=== PATIENT | male | born 1965 | race Asian ===

== ENCOUNTER 2017-05-01 19:25 | Emergency (ER) | payer OTHER ==
[2017-05-01 19:30] VITALS: BP 101/71; PULSE 81; TEMP 98; BMI 21.2
--- NOTE | 2017-05-01 19:55 | PDOC ---
History of Present Illness - General Chief Complaint: Pain, Acute Stated Complaint: SIDE AND LEG PAIN History Source: Patient Exam Limitations: No Limitations - History of Present Illness Initial Comments: 05/01/17 20:28 MY CHIEF COMPLAINT: LEFT SIDED LOWER BACK PAIN RADIATES DOWN LEFT LEG, WITH TINGLING LEFT LEG HISTORY OF PRESENT ILLNESS:PT. IS A 51 YEAR OLD MALE WITH H/O GERD HERE TODAY C/ O WORSENING LEFT SIDED LOWER BACK PAIN RADIATES DOWN LEFT POSTERIOR LEG TO HIS FOOT SINCE 04/07/17. PT. ALSO REPORTS TINGLING OF HIS LEFT LEG TO HIS FOOT. PT. DENIES ANY INCONTINENCY OR URINARY SYMPTOMS, NAUSEA OR VOMITING OR FEVER OR ANY CVA TENDERNESS OR SADDLE ANESTHESIA. PT. REPORTS LIFTING SOMETHING HEAVY AT WORK ON 04/07/17. PT. REPORTS TAKING IBUPROFEN YESTERDAY WITH SLIGHT RELIEF OF PAIN. PT. REPORTS HAVING PAIN IN HIS LOWER BACK IN THE PAST BUT NOT INTENSE THIS PAIN. PT. REPORTS PAIN IS A 7 OUT OF 10 PRESENTLY. HE DENIES ANY ABDOMINAL PAIN, NAUSEA, DIFFICULTY URINATING, FEVER OR HEMATURIA, 05/01/17 20:37 05/01/17 23:13 Timing/Duration: getting worse Severity: severe (left sided lower back pain radiating down left posterior leg to foot) Associated Symptoms: reports: denies symptoms, other (tingling left leg to left foot) Past History - Past Medical History Allergies/Adverse Reactions: Allergies Allergy/AdvReac Type Severity Reaction Status Date / Time Penicillins Allergy Intermediate Verified 05/01/17 19:28 sulfamethoxazole Allergy Intermediate Verified 05/01/17 19:28 [From Bactrim] trimethoprim [From Bactrim] Allergy Intermediate Verified 05/01/17 19:28 Home Medications: Ambulatory Orders Cyclobenzaprine HCl [Flexeril 10 mg] 10 mg PO Q8H PRN #21 tablet 05/01/17 Oxycodone HCl/Acetaminophen [Percocet 5-325 mg Tablet] 1 tab PO Q8H PRN #9 tablet MDD 3 05/01/17 GI Disorders: Yes (GERD) Suicide Attempt (Hx): No - Psycho/Social/Smoking Cessation Hx Anxiety: No Suicidal Ideation: No Smoking Status: No Smoking History: Never smoked Number of Cigarettes Smoked Daily: 0 Drug/Substance Use Hx: No Substance Use Type: None Review of Systems - Review of Systems Able to Perform ROS?: Yes Constitutional: No: Symptoms Reported HEENTM: No: Symptoms Reported Respiratory: No: Symptoms reported Cardiac (ROS): No: Symptoms Reported ABD/GI: No: Symptoms Reported : No: Symptoms Reported Musculoskeletal: Yes: Back Pain (left lumbar back pain radiates down left posterior leg to foot) Integumentary: No: Symptoms Reported Neurological: Yes: Tingling (left leg/left foot) *Physical Exam - Vital Signs Last Vital Signs Temp Pulse Resp BP Pulse Ox 98 F 81 18 101/71 100 05/01/17 19:28 05/01/17 19:28 05/01/17 19:28 05/01/17 19:28 05/01/17 19:28 - Physical Exam General Appearance: Yes: Appropriately Dressed Respiratory/Chest: positive: Lungs Clear, Normal Breath Sounds. negative: Chest Tender, Respiratory Distress Cardiovascular: positive: Regular Rhythm, Regular Rate Gastrointestinal/Abdominal: positive: Normal Bowel Sounds, Soft. negative: Tender, Organomegaly, Distended, Guarding, Rebound, Tenderness, Hepatomegaly, Spleenomegaly Musculoskeletal: positive: Normal Inspection, Decreased Range of Motion ( bending at waist ), Other (left sided lumbar back pain, no midline tenderness). negative: CVA Tenderness, CVA Tenderness (R), CVA Tenderness (L), Vertebral Tenderness Extremity: positive: Normal Capillary Refill, Normal Inspection, Normal Range of Motion Integumentary: positive: Normal Color Neurologic: positive: Alert, Normal Response, Motor Strength 5/5 (b/l legs ), Respond to painful stimul (legs b/l ), Responsive. negative: Numbness, Sensory Deficit (b/l legs ) Deep Tendon Reflexes: Knee (L): 4+, Knee (R): 4+ Medical Decision Making - Medical Decision Making 05/01/17 20:37 PT. IS A 51 YEAR OLD MALE WITH H/O GERD HERE TODAY C/O WORSENING LEFT SIDED LOWER BACK PAIN RADIATES DOWN LEFT POSTERIOR LEG TO HIS FOOT SINCE 04/07/17. PT. ALSO REPORTS TINGLING OF HIS LEFT LEG TO HIS FOOT. PT. DENIES ANY INCONTINENCY OR URINARY SYMPTOMS, NAUSEA OR VOMITING OR FEVER OR ANY CVA TENDERNESS OR SADDLE ANESTHESIA. PT. REPORTS LIFTING SOMETHING HEAVY AT WORK ON 04/07/17. PT. REPORTS TAKING IBUPROFEN YESTERDAY WITH SLIGHT RELIEF OF PAIN. PT. REPORTS HAVING PAIN IN HIS LOWER BACK IN THE PAST BUT NOT INTENSE THIS PAIN. PT. REPORTS PAIN IS A 7 OUT OF 10 PRESENTLY. PT. IS WORSE WITH CERTAIN MOVEMENTS. HE DENIES ANY ABDOMINAL PAIN, NAUSEA, DIFFICULTY URINATING, FEVER OR HEMATURIA. PT. REPORTS THAT HE HAD A URINE TEST 2 WEEKS AGO AT HIS PCP THAT WAS NEGATIVE. r/o robbin abnormality lumbar sacral spine LEFT SIDED LUMBAR RADICULOPATHY HEMATURIA R/O RENAL CALCULI 05/01/17 20:52 05/01/17 21:29 PLAN: urinalysis xray lumbar sacral spine no robbin abnormality noted, straightening of normal lordotic curve TORADOL 60 mg IM now flexeril 10 mg every 8 hrs prn muscle spasm x 7 days follow up with orthopedist as soon as possible ULTRASOUND RENAL no calculi noted percocet 5mg/325mg po every 8 hrs as needed for severe pain # 9 tabs 05/01/17 21:35 05/01/17 21:41 Laboratory Tests 05/01/17 19:55 Urine Color Ltyellow Urine Appearance Clear Urine pH 5.0 Ur Specific [place] Pending Urine Protein Negative Urine Glucose (UA) Negative Urine Ketones Negative Urine Blood 1+ H Urine Nitrite Negative Urine Bilirubin Negative Urine Urobilinogen Negative Ur Leukocyte Esterase Negative 05/01/17 23:14 *DC/Admit/Observation/Transfer Diagnosis at time of Disposition: Lumbar pain with radiation down left leg Hematuria Qualifiers: Hematuria type: unspecified type Qualified Code(s): R31.9 - Hematuria, unspecified - Discharge Dispostion Disposition: HOME Condition at time of disposition: Stable - Prescriptions Prescriptions: Cyclobenzaprine HCl [Flexeril 10 mg] 10 mg PO Q8H PRN #21 tablet PRN Reason: Muscle Spasms Oxycodone HCl/Acetaminophen [Percocet 5-325 mg Tablet] 1 tab PO Q8H PRN #9 tablet MDD 3 PRN Reason: Severe Pain - Referrals Referrals: Durga Johnson MD [Primary Care Provider] - Trip Rodriguez MD [Staff Physician] - - Patient Instructions Additional Instructions: AVOID ANY LIFTING OR STRENUOUS ACTIVITIES FOLLOW UP WITH ORTHOPEDIST WITHIN THE NEXT 2 DAYS FOR FURTHER EVALUATION RETURN TO EMERGENCY ROOM FOR WORSENING PAIN OR NUMBNESS OF LEGS OR PRIVATE AREA OR ANY NEW SYMPTOMS DEVELOP FOLLOW UP WITH YOUR PRIMARY CARE PROVIDER FOR REPEAT URINE TESING PATIENT VOICED UNDERSTANDING OF DISCHARGE INSTRUCTIONS AND ALL QUESTIONS WERE ANSWERED
[2017-05-01] MEDS ORDERED: KETOROLAC TROMETHAMINE 60 MG/2 ML VIAL IM ONE (20:20)
[2017-05-01 20:39] LABS: URINE APPEARANCE CLEAR; URINE BILIRUBIN NEGATIVE (NEGATIVE); URINE BLOOD 1+ (NEGATIVE); URINE COLOR LTYELLOW; URINE GLUCOSE (UA) NEGATIVE (NEGATIVE); URINE KETONE NEGATIVE (NEGATIVE); URINE LEUK ESTERASE NEGATIVE (NEGATIVE); URINE NITRITE NEGATIVE (NEGATIVE); URINE PROTEIN NEGATIVE (NEGATIVE); URINE UROBILINOGEN NEGATIVE mg/dL (0.2-1.0)
[2017-05-01] MEDS ORDERED: KETOROLAC TROMETHAMINE 60 MG/2 ML VIAL ONE (20:40)
[2017-05-01 21:52] LABS: URINE MUCUS RARE; URINE RBC 3 /hpf (0-3); URINE WBC 1 /hpf (3-5)
== END 2017-05-01 22:46 | disposition home or self-care (01) ==
LOC: JERFT 19:25
PROC: 3E0233Z Introduction of Anti-inflammatory into Muscle, Percutaneous Approach (ICD-10-PCS; principal; 2017-05-01)
DX: M54.16 Radiculopathy, lumbar region (principal)
CPT/HCPCS: 72100-TC; 76775-TC; 81003; 81015; 87086; 96372; 99281-25

== ENCOUNTER 2020-11-26 07:51 | Emergency (ER) | payer OTHER ==
[2020-11-26 08:17] VITALS: BP 115/80; PULSE 70; TEMP 98.4; BMI 21.7
[2020-11-26] MEDS ORDERED: DEXAMETHASONE SOD PHOSPHATE 10 MG/1 ML VIAL IM ONE (08:48)
[2020-11-26] MEDS ORDERED: DEXAMETHASONE SOD PHOSPHATE 10 MG/1 ML VIAL ONE (08:50)
== END 2020-11-26 09:21 | disposition home or self-care (01) ==
LOC: JER 07:51
PROC: 3E023NZ Introduction of Analgesics, Hypnotics, Sedatives into Muscle, Percutaneous Approach (ICD-10-PCS; principal; 2020-11-26)
DX: L30.8 Other specified dermatitis (principal)
CPT/HCPCS: 99284-25; J1100